=== PATIENT | female | born 1935 | race Two or more races ===

== ENCOUNTER 2019-07-21 21:00 | Emergency (ER) | payer OTHER ==
[~2019-07-21] VITALS: Ht 160 cm; Wt 69.9 kg
[~2019-07-21 21:00] MED LIST: CARVEDILOL25 MG; CEFADROXIL500 MG PO; GENTLE LAXATIVE5 M1; INVOKAMET 50-51 EACH; NIFEDICAL; PERCOCET 5/3251 TAB PO; RAMIPRIL10 MG; SIMVASTATIN10 MG; SYNTHROID50 MCG; TRIAMTERENE/HCT1 TA1; XARELTO10 MG PO
[2019-07-21] MEDS ORDERED: ADALAT CC30 MG (21:20)
== END 2019-07-21 22:54 | disposition home or self-care (01) ==
LOC: ER 21:00
DX: S40.011A Contusion of right shoulder, initial encounter (principal); M12.511 Traumatic arthropathy, right shoulder; W18.09XA Striking against other object with subsequent fall, initial encounter; Y93.01 Activity, walking, marching and hiking; Y92.018 Other place in single-family (private) house as the place of occurrence of the external cause; Y99.8 Other external cause status

== ENCOUNTER 2022-01-17 01:21 | Emergency (ER) | payer OTHER ==
[~2022-01-17] VITALS: Ht 160 cm; Wt 73.9 kg
[~2022-01-17 01:21] MED LIST changes: +ADALAT CC30 MG
[2022-01-17] MEDS ORDERED: BENADRYL25 MG PO (08:05)
[2022-01-17] MEDS ORDERED: MEDROL8 MG PO (08:05)
== END 2022-01-17 08:22 ==
LOC: ER 01:21
DX: T78.3XXA Angioneurotic edema, initial encounter (principal); Z88.6 Allergy status to analgesic agent; Z91.018 Allergy to other foods; E11.9 Type 2 diabetes mellitus without complications; Z79.84 Long term (current) use of oral hypoglycemic drugs; I10 Essential (primary) hypertension

== ENCOUNTER 2025-04-19 17:57 | Emergency (ER) | payer OTHER ==
[~2025-04-19] VITALS: Ht 167.6 cm; Wt 45.8 kg
[~2025-04-19 17:57] MED LIST changes: +BENADRYL25 MG PO; +MEDROL8 MG PO
[2025-04-19 18:10] VITALS: BP 144/73; O2SAT 100
[2025-04-19] MEDS ORDERED: [UNRECOGNIZED DRUG - OTHER] (18:17)
[2025-04-19] MEDS ORDERED: INVOKANA100 MG (18:17)
[2025-04-19] MEDS ORDERED: ARICEPT5 MG (18:18)
[2025-04-19] MEDS ORDERED: CARDURA1 MG PO (18:18)
[2025-04-19] MEDS ORDERED: DICYCLOMINE HCL 20 MG TABLET PO ONE (18:45)
[2025-04-19 19:44] LABS: BASO % 0.2 % (0.1-1.2); EOS # 0.23 (0.04-0.54); EOS % 4.1 % (0.7-7.0); LYMPH # 1.61 (1.18-3.74); LYMPH % 29.0 % (19.3-53.1); MEAN PLATELET VOLUME 10.50 fl (9.4-12.4); MONO # 0.48 (0.24-0.82); MONO % 8.6 % (4.7-12.5); NEUT # 3.22 (1.56-6.13); NEUT % 57.9 % (34.0-71.1); RED CELL DISTRIBUTION WIDTH 12.2 % (11.6-14.4)
[2025-04-19 20:04] LABS: INR 1.05
[2025-04-19 20:15] LABS: ALT/SGPT 27.0 U/L (12-78); AST/SGOT 24.0 U/L (15-37); BILIRUBIN TOTAL 0.35 mg/dL (0.3-1.2); BUN CREA RATIO 10.0 (7.0-25.0); CREATININE SERUM 3.09 mg/dL (0.55-1.02); GFR 14.23; GLOBULINA 3.8 G/DL (2.4-3.5); GLUCOSE FASTING 93.0 mg/dL (65-100); OSMOLALITY SERUM 297.0 MOSM/KG (275-295)
== END 2025-04-19 22:08 | disposition home or self-care (01) ==
LOC: ER 17:57
PROVIDERS: General Practice
DX: R19.7 Diarrhea, unspecified (principal); R10.9 Unspecified abdominal pain; Z88.6 Allergy status to analgesic agent; Z91.018 Allergy to other foods; E03.8 Other specified hypothyroidism; I10 Essential (primary) hypertension; E11.9 Type 2 diabetes mellitus without complications; Z79.84 Long term (current) use of oral hypoglycemic drugs